=== PATIENT | female | born 1990 | race Caucasian/White ===

== ENCOUNTER → 2020-07-03 | Outpatient (CLI) | payer OTHER | LOC: LAB 13:11 | PROVIDERS: Internal Medicine | DX: D89.89 Other specified disorders involving the immune mechanism, not elsewhere classified (principal); M25.50 Pain in unspecified joint; R76.8 Other specified abnormal immunological findings in serum; R53.83 Other fatigue | CPT/HCPCS: 36415; 82164; 82728; 83520; 84439; 84443 ==